=== PATIENT | male | born 1985 | race African-American/Black ===

== ENCOUNTER 2019-02-11 02:39 | Emergency (ER) | payer SELFPAY ==
[~2019-02-11] VITALS: Ht 188 cm; Wt 74.8 kg
[2019-02-11 02:39] VITALS: BP 151/88
--- NOTE | 2019-02-11 02:54 | NUR ---
PT TAKEN TO RADIOLOGY [facility]IA [facility]
--- NOTE | 2019-02-11 03:02 | NUR ---
PT RETURNED FROM RADIOLOGY VIA [facility]
[2019-02-11] MEDS ORDERED: LIDOCAINE 1% INJ 50 ML MDV IJ ONE (03:56)
== END 2019-02-11 06:29 | disposition home or self-care (01) ==
LOC: ER 02:42
DX: S01.21XA Laceration without foreign body of nose, initial encounter (principal); F43.10 Post-traumatic stress disorder, unspecified; W01.0XXA Fall on same level from slipping, tripping and stumbling without subsequent striking against object, initial encounter; Y93.89 Activity, other specified; Y92.89 Other specified places as the place of occurrence of the external cause; Y99.8 Other external cause status
CPT/HCPCS: 12011; 70450; 99284; A6403; J3490

== ENCOUNTER 2019-02-23 11:47 | Emergency (ER) | payer SELFPAY ==
[~2019-02-23] VITALS: Ht 190.5 cm; Wt 74.8 kg
[2019-02-23 12:00] VITALS: BP 139/100
== END 2019-02-23 12:40 | disposition home or self-care (01) ==
LOC: ER 11:47
DX: S01.81XD Laceration without foreign body of other part of head, subsequent encounter (principal); T81.33XA Disruption of traumatic injury wound repair, initial encounter; H10.9 Unspecified conjunctivitis; F43.10 Post-traumatic stress disorder, unspecified; X58.XXXD Exposure to other specified factors, subsequent encounter
CPT/HCPCS: 99283; A6403